=== PATIENT | male | born 1965 | race Caucasian/White ===

== ENCOUNTER 2019-02-17 13:41 | Emergency (ER) | payer BC ==
[~2019-02-17] VITALS: Ht 167.6 cm; Wt 108.0 kg
[2019-02-17] MEDS ORDERED: ADVAIR 500-501 EACH INH (14:04)
[2019-02-17] MEDS ORDERED: GLUCOPHAGE1000 MG PO (14:04)
[2019-02-17] MEDS ORDERED: SINGULAIR 10 MG10 MG PO (14:04)
[2019-02-17] MEDS ORDERED: LISINOPRIL-HCT1 EAC1 PO (14:04)
[2019-02-17] MEDS ORDERED: PROAIR HFA8.5 GM INH (14:04)
[2019-02-17] MEDS ORDERED: NORVASC 2.5 MG2.5 M1 (14:05)
[2019-02-17] MEDS ORDERED: METOPROLOL SUC100 MG PO (14:05)
[2019-02-17 14:29] LABS: ABSOLUTE BASOPHILS 0.1 thou/uL (0.0-0.2); ABSOLUTE EOSINOPHILS 0.2 thou/uL (0.0-0.7); ABSOLUTE LYMPHOCYTES 1.4 thou/uL (0.8-5.3); ABSOLUTE NEUTROPHILS 5.6 thou/uL (1.6-8.1); BASOPHILS 0.9 %; HEMATOCRIT 43.8 % (42.0-52.0); LYMPHOCYTES 16.5 %; MCH 31.9 pg (26.0-34.0); MCHC 34.2 g/dL (28.0-37.0); MCV 93.1 fL (80.0-100.0); MONOCYTES 12.2 %; MPV 9.2 fl. (7.2-11.1); NUCLEATED RBCS 0 /100WBC; PLATELET COUNT* 251 thou/uL (150-400); POLYS 67.4 %; RDW-CV 13.3 % (10.5-14.5); WBC 8.3 thou/uL (4.0-11.0)
[2019-02-17 14:38] LABS: CALCIUM 9.3 mg/dL (8.5-10.1); CREATININE 0.8 mg/dL (0.6-1.3); POTASSIUM 4.6 mmol/L (3.5-5.1)
[2019-02-17 14:42] LABS: ALBUMIN 3.9 g/dL (3.4-5.0)
--- NOTE | 2019-02-17 15:25 | EKG ---
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 : 1965 Requested By: Christopher Quezada Order Number: [id number] MD: James Haddad Measurements Intervals [place] Rate: 89 P: 74 RI: 145 QRS: 38 QRSD: 89 T: 59 QT: 371 QTc: 452 Interpretive Statements Sinus rhythm Borderline low voltage, extremity leads Baseline wander in lead(s) II,III,aVF No previous ECG available for comparison Electronically Signed On 02-17-2019 15:24:29 SYSTEMS QA ANALYST by James Haddad [email or web address] <ELECTRONICALLY SIGNED> By: James Haddad MD, [facility] 02/17/19 1524 1425 1425 James Haddad MD, FACC /EPI
[2019-02-17] MEDS ORDERED: TRIAMCINOLONE A15 G1 TOP (16:18)
[2019-02-17] MEDS ORDERED: BACTRIM DS TAB1 EACH PO (16:18)
[2019-02-17] MEDS ORDERED: PREDNISONE 20 M20 M1 PO (16:18)
[2019-02-17] MEDS ORDERED: KEFLEX500 M1 PO (16:18)
[2019-02-17 16:30] VITALS: BP 165/80
== END 2019-02-17 16:31 | disposition home or self-care (01) ==
LOC: M.ERS 13:41
PROVIDERS: Family Medicine
DX: L03.115 Cellulitis of right lower limb (principal); L30.9 Dermatitis, unspecified; E11.9 Type 2 diabetes mellitus without complications; I10 Essential (primary) hypertension; E78.00 Pure hypercholesterolemia, unspecified; J44.9 Chronic obstructive pulmonary disease, unspecified; F17.210 Nicotine dependence, cigarettes, uncomplicated; Z88.0 Allergy status to penicillin; Z88.8 Allergy status to other drugs, medicaments and biological substances

== ENCOUNTER 2021-03-13 05:58 | Inpatient (IN) | payer OTHER ==
[~2021-03-13] VITALS: Ht 170.2 cm; Wt 109.3 kg
[~2021-03-13 05:58] MED LIST: ADVAIR 500-501 EACH INH; BACTRIM DS TAB1 EACH PO; KEFLEX500 M1 PO; LISINOPRIL-HCT1 EAC1 PO; METFORMIN HCL500 MG PO; METOPROLOL SUC100 MG PO; NORVASC 2.5 MG2.5 M1; PREDNISONE 20 M20 M1 PO; PROAIR HFA8.5 GM INH; SINGULAIR 10 MG10 MG PO; TRIAMCINOLONE A15 G1 TOP
[2021-03-13 06:16] VITALS: BP 142/70
[2021-03-13 06:55] LABS: INFLUENZA A ANTIGEN Negative (Negative); INFLUENZA B ANTIGEN Negative (Negative)
[2021-03-13 06:58] LABS: ABSOLUTE LYMPHOCYTES 0.6 thou/uL (0.8-5.3); ABSOLUTE MONOCYTES 2.5 thou/uL (0.0-1.2); ABSOLUTE NEUTROPHILS 10.8 thou/uL (1.6-8.1); BASOPHILS 0.1 %; HEMATOCRIT 36.1 % (42.0-52.0); HEMOGLOBIN 12.3 gm/dL (14.0-18.0); LYMPHOCYTES 4.6 %; MCH 32.3 pg (26.0-34.0); MCHC 34.2 g/dL (28.0-37.0); MCV 94.4 fL (80.0-100.0); MPV 8.8 fl. (7.2-11.1); NUCLEATED RBCS 0 /100WBC; PLATELET COUNT* 273 thou/uL (150-400); POLYS 77.3 %; RBC 3.82 mil/uL (4.50-6.00); RDW-CV 12.1 % (10.5-14.5); WBC 13.9 thou/uL (4.0-11.0)
[2021-03-13 07:10] LABS: CALCIUM 8.2 mg/dL (8.5-10.1); CREATININE 0.7 mg/dL (0.6-1.3); POTASSIUM 3.6 mmol/L (3.5-5.1)
[2021-03-13 07:20] LABS: ALBUMIN 2.5 g/dL (3.4-5.0); TOTAL BILIRUBIN 1.2 mg/dL (<0.1-1.0); TOTAL PROTEIN 7.3 g/dL (6.4-8.2)
[2021-03-13 09:49] LABS: URINE BILIRUBIN NEGATIVE (Negative); URINE BLOOD 1+ (Negative); URINE CLARITY CLEAR; URINE COLOR YELLOW; URINE GLUCOSE-RANDOM NEGATIVE (Negative); URINE KETONES 1+ (Negative); URINE LEUKOCYTES-REFLEX NEGATIVE (Negative); URINE NITRITE-REFLEX NEGATIVE (Negative); URINE PROTEIN 1+ (Negative); URINE UROBILINOGEN 0.2 E.U./dl (0.2-1.0)
[2021-03-13 09:51] LABS: BACTERIA-REFLEX None Seen /HPF (None Seen); CASTS None Seen /LPF (None Seen); CRYSTALS None Seen /LPF (None Seen); SQUAMOUS 0-3 Few /LPF (0-3); URINE RBC 3-10 Few /HPF (0-2); URINE WBC-REFLEX None Seen /HPF (0-5)
[2021-03-13 11:29] LABS: CALCIUM 7.9 mg/dL (8.5-10.1); CREATININE 0.6 mg/dL (0.6-1.3); POTASSIUM 3.8 mmol/L (3.5-5.1)
[2021-03-13 12:30] VITALS: BP 141/78
--- NOTE | 2021-03-13 13:16 | EKG ---
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: TARSHA : 1965 Requested By: Giselle Esquivel Order Number: [id number] MD: Efra Pascual Measurements Intervals [place] Rate: 90 P: 80 IA: 56 QRS: 14 QRSD: 102 T: 49 QT: 379 QTc: 464 Interpretive Statements Sinus rhythm Short IA interval Low voltage, precordial leads RSR' in V1 or V2, right VCD or RVH Compared to ECG 02/17/2019 14:25:28 Short IA interval now present Right ventricular hypertrophy now present RSR' in V1 or V2 now present Electronically Signed On 03-13-2021 13:15:58 GRADER MARKER by Efra Pascual [email or web address] <ELECTRONICALLY SIGNED> By: Efra Pascual MD, [facility] 03/13/21 1315 1 1 Efra Pascual MD, [facility] /EPI
[2021-03-13 14:32] LABS: CALCIUM 8.4 mg/dL (8.5-10.1); CREATININE 0.7 mg/dL (0.6-1.3); POTASSIUM 3.6 mmol/L (3.5-5.1)
[2021-03-13 16:29] LABS: CALCIUM 8.3 mg/dL (8.5-10.1); CREATININE 0.7 mg/dL (0.6-1.3); POTASSIUM 3.7 mmol/L (3.5-5.1)
[2021-03-13 18:11] VITALS: BP 133/65
[2021-03-13 23:00] VITALS: BP 133/65
[2021-03-14 04:18] LABS: HEMATOCRIT 39.1 % (42.0-52.0); HEMOGLOBIN 12.9 gm/dL (14.0-18.0); MCH 32.2 pg (26.0-34.0); MCV 97.4 fL (80.0-100.0); RBC 4.01 mil/uL (4.50-6.00); RDW-CV 12.5 % (10.5-14.5); WBC 8.2 thou/uL (4.0-11.0)
[2021-03-14 04:41] LABS: ALBUMIN 2.4 g/dL (3.4-5.0); CALCIUM 8.7 mg/dL (8.5-10.1); CREATININE 0.8 mg/dL (0.6-1.3); MAGNESIUM 3.2 mg/dL (1.8-2.4); POTASSIUM 3.2 mmol/L (3.5-5.1); TOTAL BILIRUBIN 0.4 mg/dL (<0.1-1.0); TOTAL PROTEIN 7.8 g/dL (6.4-8.2)
[2021-03-14 05:30] VITALS: BP 130/70
[2021-03-14 10:00] VITALS: BP 148/65
--- NOTE | 2021-03-14 10:04 | NUR ---
ASSUMED PT CARE
--- NOTE | 2021-03-14 12:08 | 2DMMODE ---
[place] [address] 2 D/M-MODE ECHOCARDIOGRAM Name: ADELACHRISTINALIAT Chiu JR Room: [address] IN [place]#: [id number] Admission: 03/13/21 Attend Phys: Elda Cole, Discharge: Date of : 63 Date of Service: 03/14/21 1207 Report #: [id number] THIS REPORT FOR: cc: Indio Harmon Brad DO Blick,James Baez MD [facility] ~ APPROVED REPORT Study performed: 03/14/2021 09:51:16 EXAM: Comprehensive 2D, Doppler, and color-flow Echocardiogram Patient Location: In-Patient Room #: er Status: routine BSA: 2.19 HR: 82 bpm BP: 130/70 mmHg Rhythm: NSR Other Information Technically limited study due to poor endocardial definition in apical windows. Indications elevated bnp Echo Enhancing Agent Indication: Endocardial border delineation Agent(s) / Amount(s) Used: Optison 3 cc 2D Dimensions IVSd: 11.35 (7-11mm) LVOT Diam: 19.90 (18-24mm) LVDd: 50.01 mm PWd: 11.06 (7-11mm) Ascending Ao: 32.18 (22-36mm) LVDs: 26.78 (25-40mm) Aortic Root: 34.15 mm Volumes Left Atrial Volume (Systole) LA ESV Index: 28.20 mL/m2 Aortic Valve AoV Peak Elie.: 1.53 m/s AO Peak Gr.: 9.41 mmHg LVOT Max P.87 [place] [address] 2 D/M-MODE ECHOCARDIOGRAM Name: CHRISTINA CHAPMAN JR Room: [address] IN [facility]#: [id number] Admission: 03/13/21 Attend Phys: Elda Cole, Discharge: Date of : 63 Date of Service: 03/14/21 1207 Report #: [id number] Mean Gr.: 5.07 mmHg LVOT Mean P.66 mmHg LVOT Max V: 1.40 m/s AO V2 VTI: 30.39 cm LVOT Mean V: 0.88 m/s NEREYDA (VTI): 2.91 cm2 LVOT V1 VTI: 28.38 cm Mitral Valve E/A Ratio: 2.01 MV Decel. Time: 198.91 ms MV E Max Elie.: 1.18 m/s MV PHT: 57.68 ms MVA (PHT): 3.81 cm2 TDI E/Lateral E': 10.73 E/Medial E': 9.08 Medial E' Elie.: 0.13 m/s Lateral E' Elie.: 0.11 m/s Pulmonary Valve PV Peak Elie.: 1.08 m/s PV Peak Gr.: 4.65 mmHg Tricuspid Valve RAP Estimate: 5.00 mmHg TR Peak Gr.: 34.13 mmHg RVSP: 39.00 mmHg PA Pressure: 39.00 mmHg Left Ventricle The left ventricle is normal size. There is normal LV segmental wall motion. There is normal left ventricular wall thickness. Left ventricular systolic function is normal. The left ventricular ejection fraction is within the normal range. LVEF is 60-65%. The left ventricular diastolic function is normal. Right Ventricle The right ventricle is normal size. The right ventricular systolic function is normal. Atria The left atrium size is normal. The right atrium size is normal. Aortic Valve The aortic valve is normal in structure. No aortic regurgitation is present. There is no aortic valvular stenosis. Mitral Valve The mitral valve is normal in structure. [place] [address] 2 D/M-MODE ECHOCARDIOGRAM Name: CHRISTINA CHAPMAN JR Room: [address]#: [id number] Admission: 03/13/21 Attend Phys: Elda Cole, Discharge: Date of : 63 Date of Service: 03/14/21 1207 Report #: [id number] No evidence of mitral valve stenosis. Tricuspid Valve The tricuspid valve is normal in structure. Trace tricuspid regurgitation. estimated pa pressure 40 mm Hg Pulmonic Valve The pulmonary valve is normal in structure. There is no pulmonic valvular regurgitation. Great Vessels The aortic root is normal in size. IVC is normal in size and collapses >50% with inspiration. Pericardium There is no pericardial effusion. <Conclusion> LVEF is 60-65%. Trace tricuspid regurgitation. estimated pa pressure 40 mm Hg Trace mitral regurgitation. <ELECTRONICALLY SIGNED> By: James Haddad MD, FACC 03/14/211206 06 06 James Haddad MD, FACC /INF
[2021-03-14 13:42] VITALS: BP 138/68
[2021-03-14 20:14] VITALS: BP 134/66
[2021-03-15] VITALS: BP 128/74
[2021-03-15 04:00] VITALS: BP 165/79
[2021-03-15 04:15] LABS: HEMATOCRIT 34.7 % (42.0-52.0); HEMOGLOBIN 11.4 gm/dL (14.0-18.0); MCH 31.8 pg (26.0-34.0); MCV 96.5 fL (80.0-100.0); MPV 8.4 fl. (7.2-11.1); RBC 3.59 mil/uL (4.50-6.00); RDW-CV 12.5 % (10.5-14.5); WBC 13.4 thou/uL (4.0-11.0)
[2021-03-15 04:48] LABS: ALBUMIN 2.3 g/dL (3.4-5.0); CALCIUM 8.6 mg/dL (8.5-10.1); CREATININE 0.8 mg/dL (0.6-1.3); POTASSIUM 3.9 mmol/L (3.5-5.1); TOTAL BILIRUBIN 0.3 mg/dL (<0.1-1.0); TOTAL PROTEIN 6.9 g/dL (6.4-8.2)
[2021-03-15 08:27] VITALS: BP 152/66
--- NOTE | 2021-03-15 09:14 | NUR ---
PT IS ABLE TO COMMUNICATE HIS NEEDS TO STAFF EFFECTIVELY. HE HAS DENIED THE NEED FOR PAIN MEDICATION UP TO THIS TIME.
[2021-03-15] MEDS ORDERED: DOXYCYCLINE 10100 MG PO (11:33)
[2021-03-15] MEDS ORDERED: CEFDINIR300 MG PO (11:33)
[2021-03-15] MEDS ORDERED: DEXAMETHASONE 22 M1 PO (11:33)
[2021-03-15 12:00] VITALS: BP 139/70
[2021-03-15 16:00] VITALS: BP 161/74
--- NOTE | 2021-03-15 16:20 | NUR ---
CM ATTEMPTED TO CONDUCT ASSESSMENT BY CALLING PT ROOM AND PT ([place] [phone]). CM UNABLE TO MAKE CONTACT. PT MED CLEAR FOR DC HOME WITH NO CM NEEDS.
[2021-03-15 16:51] VITALS: BP 161/74
== END 2021-03-15 17:10 | disposition home or self-care (01) | DRG 177 ==
LOC: M.ERS 05:58 → M.TBA-ER 08:28 → M.ORTHSURG 03-14 13:34
PROVIDERS: Emergency Medicine; ADMIT Internal Medicine; ATTEND Internal Medicine
PROC: XW033E5 Introduction of Remdesivir Anti-infective into Peripheral Vein, Percutaneous Approach, New Technology Group 5 (ICD-10-PCS; principal; 2021-03-14)
DX: U07.1 COVID-19 (principal); J96.01 Acute respiratory failure with hypoxia; J15.6 Pneumonia due to other Gram-negative bacteria; J12.82 Pneumonia due to coronavirus disease 2019; E87.1 Hypo-osmolality and hyponatremia; J44.1 Chronic obstructive pulmonary disease with (acute) exacerbation; J44.0 Chronic obstructive pulmonary disease with (acute) lower respiratory infection; I10 Essential (primary) hypertension; E78.00 Pure hypercholesterolemia, unspecified; F17.210 Nicotine dependence, cigarettes, uncomplicated; E87.8 Other disorders of electrolyte and fluid balance, not elsewhere classified; I25.10 Atherosclerotic heart disease of native coronary artery without angina pectoris; E11.65 Type 2 diabetes mellitus with hyperglycemia; I25.2 Old myocardial infarction; Z88.0 Allergy status to penicillin; Z88.8 Allergy status to other drugs, medicaments and biological substances; Z79.899 Other long term (current) drug therapy